=== PATIENT | male | born 2000 | race Caucasian/White ===

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

== ENCOUNTER 2021-03-05 09:37 | Emergency (ER) | payer BC ==
[2021-03-05 09:58] VITALS: BP 153/110; PULSE 115
[2021-03-05] MEDS ORDERED: Sodium Chloride 0.9% 1,000 ML IV STA (10:06)
[2021-03-05] MEDS ORDERED: Sodium Chloride 0.9% 10 ML Syringe FLUSH PRN (10:06)
[2021-03-05] MEDS ORDERED: Ondansetron 4 MG/2 ML SDV IVPUSH ONE (10:06)
--- NOTE | 2021-03-05 10:43 | EDM.PDOC ---
ED HPI GENERAL MEDICAL PROBLEM - General Chief Complaint: Gastrointestinal Problem Stated Complaint: POS DEHYDRATION Time Seen by Provider: 03/05/21 09:48 Source of Information: Reports: Patient History Limitations: Reports: No Limitations - History of Present Illness INITIAL COMMENTS - FREE TEXT/NARRATIVE: The patient presents with nausea, vomiting and chills. This started about 3 days ago. He did quit smoking marijuana 3 days ago. He says this has happened in the past when he quits smoking marijuana. He felt like he may have had a fever. He has no chest segura, shortness of breath or diarrhea. He has some mild abdominal cramping. He still has his appendix and gallbladder. Onset: Gradual Duration: Day(s): (3) Location: Reports: Abdomen Quality: Reports: Other (cramping) Severity: Mild Improves with: Reports: None Worsens with: Reports: None Associated Symptoms: Reports: Fever/Chills, Nausea/Vomiting. Denies: Chest Pain, Cough, Headaches, Shortness of Breath - Related Data Allergies Allergy/AdvReac Type Severity Reaction Status Date / Time azithromycin [From Zithromax] Allergy Hives Verified 07/09/19 16:56 Home Meds: Home Meds Ondansetron [Zofran ODT] 4 mg PO Q6H PRN #20 tab.dis 03/05/21 [Rx] Past Medical History - Past Health History Medical/Surgical History: Denies Medical/Surgical History Psychiatric History: Reports: Anxiety, Depression - Past Surgical History HEENT Surgical History: Reports: Myringotomy w Tube(s) Social & Family History - Family History Family Medical History: No Pertinent Family History - Tobacco Use Tobacco Use Status *Q: Never Tobacco User - Caffeine Use Caffeine Use: Reports: None - Recreational Drug Use Recreational Drug Use: Yes Drug Use in Last 12 Months: Yes Recreational Drug Type: Reports: Marijuana/Hashish Recreational Drug Use Frequency: Daily - Living Situation & Occupation Living situation: Reports: with Family Occupation: Student (12th grade) ED ROS GENERAL - Review of Systems Review Of Systems: See Below Constitutional: Reports: Fever, Chills HEENT: Reports: No Symptoms Respiratory: Reports: No Symptoms Cardiovascular: Reports: No Symptoms Endocrine: Reports: No Symptoms GI/Abdominal: Reports: Abdominal Pain, Nausea, Vomiting. Denies: Diarrhea : Reports: No Symptoms Musculoskeletal: Reports: No Symptoms ED EXAM, GI/ABD - Physical Exam Exam: See Below Exam Limited By: No Limitations General Appearance: Alert, No Apparent Distress Ears: Normal External Exam Nose: Normal Inspection Head: Atraumatic, Normocephalic Neck: Normal Inspection Respiratory/Chest: No Respiratory Distress, Lungs Clear, Normal Breath Sounds Cardiovascular: Regular Rate, Rhythm, No Edema, No Murmur GI/Abdominal Exam: Soft, No Organomegaly, No Mass, Tender (Mild generalized tenderness) Course - Vital Signs Last Recorded V/S: Last Vital Signs Temp 97.6 F 03/05/21 09:52 Pulse 115 H 03/05/21 09:52 Resp 20 03/05/21 09:52 BP 153/110 H 03/05/21 09:52 Pulse Ox 100 03/05/21 09:52 - Orders/Labs/Meds Orders: Active Orders 24 hr Category Date Time Status Peripheral IV Care [RC] . DIRECTED Care 03/05/21 10:06 Active Sodium Chloride 0.9% [Saline Flush] Med 03/05/21 10:06 Active 10 ml FLUSH ASDIRECTED PRN ED Antiemetic Medication Reflex [OM.PC] Stat Oth 03/05/21 10:06 Ordered Peripheral IV Insertion Adult [OM.PC] Stat Oth 03/05/21 10:06 Ordered Medication Orders Sodium Chloride (Sodium Chloride 0.9% 10 Ml Syringe) 10 ml FLUSH ASDIRECTED PRN PRN Reason: Keep Vein Open Last Admin: 03/05/21 10:20 Dose: 10 ml Documented by: RADU Labs: Laboratory Tests 03/05/21 03/05/21 03/05/21 Range/Units 10:15 10:15 11:15 WBC 13.17 H (4.23-9.07) K/mm3 RBC 5.87 (4.63-6.08) M/mm3 Hgb 17.2 D (13.7-17.5) gm/dl Hct 49.5 (40.1-51.0) % MCV 84.3 (79.0-92.2) fl MCH 29.3 (25.7-32.2) pg MCHC 34.7 (32.2-35.5) g/dl RDW Std Deviation 40.8 (35.1-43.9) fL Plt Count 306 (163-337) K/mm3 MPV 10.0 (9.4-12.3) fl Neut % (Auto) 77.0 H (34.0-67.9) % Lymph % (Auto) 15.3 L (21.8-53.1) % [place] % (Auto) 7.1 (5.3-12.2) % Eos % (Auto) 0.2 L (0.8-7.0) Baso % (Auto) 0.2 (0.1-1.2) % Neut # (Auto) 10.15 H (1.78-5.38) K/mm3 Lymph # (Auto) 2.02 (1.32-3.57) K/mm3 [place] # (Auto) 0.94 H (0.30-0.82) K/mm3 Eos # (Auto) 0.02 L (0.04-0.54) K/mm3 Baso # (Auto) 0.02 (0.01-0.08) K/mm3 Manual Slide Review Abnormal smear Sodium 140 (136-145) mEq/L Potassium 3.1 L (3.5-5.1) mEq/L Chloride 95 L (98-107) mEq/L Carbon Dioxide 27 (21-32) mEq/L Anion Gap 21.1 H (5-15) BUN 28 H (7-18) mg/dL Creatinine 1.2 (0.7-1.3) mg/dL Est Cr Clr Drug Dosing 105.45 mL/min Estimated GFR (MDRD) > 60 (>60) mL/min BUN/Creatinine Ratio 23.3 H (14-18) Glucose 111 H (70-99) mg/dL Calcium 10.7 H (8.5-10.1) mg/dL Total Bilirubin 1.1 H (0.2-1.0) mg/dL AST 11 L (15-37) U/L ALT 25 (16-63) U/L Alkaline Phosphatase 59 (46-116) U/L Total Protein 9.4 H (6.4-8.2) g/dl Albumin 5.7 H (3.4-5.0) g/dl Globulin 3.7 gm/dL Albumin/Globulin Ratio 1.5 (1-2) Lipase 51 L (73-393) U/L Urine Color (Yellow) Urine Appearance (Clear) Urine pH (5.0-8.0) Ur Specific [place] (1.005-1.030) Urine Protein (Negative) Urine Glucose (UA) (Negative) Urine Ketones (Negative) Urine Occult Blood (Negative) Urine Nitrite (Negative) Urine Bilirubin (Negative) Urine Urobilinogen (0.2-1.0) Ur Leukocyte Esterase (Negative) U Hyaline Cast (Auto) (0-5) /lpf Urine RBC (0-5) /hpf Urine WBC (0-5) /hpf Ur Squamous Epith Cells (0-5) /hpf Urine Bacteria (FEW) /hpf Urine Mucus (FEW) /hpf Urine Opiates Screen Negative (TZTPUH=404) Ur Buprenorphine Scrn Negative (CUTOFF=10) Ur Oxycodone Screen Negative (XUL8HR=244) Urine Methadone Screen Negative (MKP7KG=439) Ur Propoxyphene Screen Negative (AJNSCP=491) Ur Barbiturates Screen Negative (CIDKFO=873) Ur Tricyclics Screen Negative (WBQRMO=122) Ur Phencyclidine Scrn Negative (CUTOFF=25) Ur Amphetamine Screen Negative (RXFREV=774) U Methamphetamines Scrn Negative (NOGGZL=710) U Benzodiazepines Scrn Negative (JBUVMZ=043) U Cocaine Metab Screen Negative (SEDEXG=949) U Marijuana (THC) Screen Presumptive positive H (CUTOFF=50) 03/05/21 Range/Units 11:20 WBC (4.23-9.07) K/mm3 RBC (4.63-6.08) M/mm3 Hgb (13.7-17.5) gm/dl Hct (40.1-51.0) % MCV (79.0-92.2) fl MCH (25.7-32.2) pg MCHC (32.2-35.5) g/dl RDW Std Deviation (35.1-43.9) fL Plt Count (163-337) K/mm3 MPV (9.4-12.3) fl Neut % (Auto) (34.0-67.9) % Lymph % (Auto) (21.8-53.1) % [place] % (Auto) (5.3-12.2) % Eos % (Auto) (0.8-7.0) Baso % (Auto) (0.1-1.2) % Neut # (Auto) (1.78-5.38) K/mm3 Lymph # (Auto) (1.32-3.57) K/mm3 [place] # (Auto) (0.30-0.82) K/mm3 Eos # (Auto) (0.04-0.54) K/mm3 Baso # (Auto) (0.01-0.08) K/mm3 Manual Slide Review Sodium (136-145) mEq/L Potassium (3.5-5.1) mEq/L Chloride (98-107) mEq/L Carbon Dioxide (21-32) mEq/L Anion Gap (5-15) BUN (7-18) mg/dL Creatinine (0.7-1.3) mg/dL Est Cr Clr Drug Dosing mL/min Estimated GFR (MDRD) (>60) mL/min BUN/Creatinine Ratio (14-18) Glucose (70-99) mg/dL Calcium (8.5-10.1) mg/dL Total Bilirubin (0.2-1.0) mg/dL AST (15-37) U/L ALT (16-63) U/L Alkaline Phosphatase (46-116) U/L Total Protein (6.4-8.2) g/dl Albumin (3.4-5.0) g/dl Globulin gm/dL Albumin/Globulin Ratio (1-2) Lipase (73-393) U/L Urine Color Dark yellow (Yellow) Urine Appearance Clear (Clear) Urine pH 7.0 (5.0-8.0) Ur Specific [place] 1.025 (1.005-1.030) Urine Protein 3+ H (Negative) Urine Glucose (UA) Negative (Negative) Urine Ketones 4+ H (Negative) Urine Occult Blood Negative (Negative) Urine Nitrite Negative (Negative) Urine Bilirubin 1+ H (Negative) Urine Urobilinogen 1.0 (0.2-1.0) Ur Leukocyte Esterase Negative (Negative) U Hyaline Cast (Auto) 0-5 (0-5) /lpf Urine RBC 0-5 (0-5) /hpf Urine WBC 0-5 (0-5) /hpf Ur Squamous Epith Cells 0-5 (0-5) /hpf Urine Bacteria Moderate H (FEW) /hpf Urine Mucus Moderate H (FEW) /hpf Urine Opiates Screen (QUEOVP=473) Ur Buprenorphine Scrn (CUTOFF=10) Ur Oxycodone Screen (YJO6WL=055) Urine Methadone Screen (LTD7UR=149) Ur Propoxyphene Screen (HMNVFX=921) Ur Barbiturates Screen (QINHGA=336) Ur Tricyclics Screen (NOCSWA=375) Ur Phencyclidine Scrn (CUTOFF=25) Ur Amphetamine Screen (IHMPCK=982) U Methamphetamines Scrn (AYPDSP=146) U Benzodiazepines Scrn (RLAOVW=161) U Cocaine Metab Screen (LWOVNH=202) U Marijuana (THC) Screen (CUTOFF=50) Meds: Medications Generic Name Dose Route Start Last Admin Trade Name Freq PRN Reason Stop Dose Admin Sodium Chloride 10 ml 03/05/21 10:06 03/05/21 10:20 Sodium Chloride 0.9% 10 Ml Syringe FLUSH 10 ml ASDIRECTED PRN Administration Keep Vein Open Discontinued Medications Generic Name Dose Route Start Last Admin Trade Name Freq PRN Reason Stop Dose Admin Sodium Chloride 1,000 mls @ 1,000 mls/hr 03/05/21 10:06 03/05/21 10:22 Normal Saline IV 03/05/21 11:05 1,000 mls/hr .BOLUS STA Administration Ondansetron HCl 4 mg 03/05/21 10:06 03/05/21 10:20 Ondansetron 4 Mg/2 Ml Sdv IVPUSH 03/05/21 10:07 4 mg ONETIME ONE Administration - Re-Assessments/Exams Free Text/Narrative Re-Assessment/Exam: 03/05/21 10:44 I ordered an IV NS 1L bolus, zofran 4mg IV, labs and UA. 03/05/21 12:12 His WBC was elevated at 13.17. His K was a little low at 3.1. His anion gap is elevated at 21.1. His lipase is negative. His UA shows no UTI. His urine drug screen was positive for marijuana. 03/05/21 12:15 He feels better. I will discharge him home. Departure - Departure Time of Disposition: 12:20 Disposition: Home, Self-Care 01 Condition: Good Clinical Impression: Nausea & vomiting Qualifiers: Vomiting type: unspecified Vomiting Intractability: non-intractable Qualified Code(s): R11.2 - Nausea with vomiting, unspecified - Discharge Information *PRESCRIPTION DRUG MONITORING PROGRAM REVIEWED*: Not Applicable *COPY OF PRESCRIPTION DRUG MONITORING REPORT IN PATIENT ALBERT: Not Applicable Prescriptions: Ondansetron [Zofran ODT] 4 mg PO Q6H PRN #20 tab.dis PRN Reason: Nausea\vomiting Referrals: PCP,None [Primary Care Provider] - Forms: ED Department Discharge Additional Instructions: Drink plenty of fluids. Take the zofran every 6 hours as needed for nausea and vomiting. Please return if you are worse. Sepsis Event Note (ED) - Evaluation Sepsis Screening Result: No Definite Risk - Focused Exam Vital Signs: Vital Signs Temp Pulse Resp BP Pulse Ox 03/05/21 09:52 97.6 F 115 H 20 153/110 H 100 - My Orders Last 24 Hours: My Active Orders 03/05/21 10:06 Peripheral IV Care [RC] . DIRECTED Sodium Chloride 0.9% [Saline Flush] 10 ml FLUSH ASDIRECTED PRN ED Antiemetic Medication Reflex [OM.PC] Stat Peripheral IV Insertion Adult [OM.PC] Stat - Assessment/Plan Last 24 Hours: My Active Orders 03/05/21 10:06 Peripheral IV Care [RC] . DIRECTED Sodium Chloride 0.9% [Saline Flush] 10 ml FLUSH ASDIRECTED PRN ED Antiemetic Medication Reflex [OM.PC] Stat Peripheral IV Insertion Adult [OM.PC] Stat
== END 2021-03-05 12:26 | disposition home or self-care (01) ==
LOC: JD.ED 09:37
DX: R11.2 Nausea with vomiting, unspecified (principal); Z88.1 Allergy status to other antibiotic agents; F12.21 Cannabis dependence, in remission
CPT/HCPCS: 36415; 80053; 80306; 81001; 83690; 85025; 96374; 99284; J2405; J7030; 99283

== ENCOUNTER 2021-03-07 10:47 | Emergency (ER) | payer BC ==
[2021-03-07 11:20] VITALS: BP 164/100; PULSE 84
[2021-03-07] MEDS ORDERED: Sodium Chloride 0.9% 10 ML Syringe FLUSH PRN (11:32)
[2021-03-07] MEDS ORDERED: Metoclopramide 10 MG/2 ML SDV IVPUSH ONE (11:33)
[2021-03-07] MEDS ORDERED: Sodium Chloride 0.9% 1,000 ML IV STA ×2 (11:33→12:32)
--- NOTE | 2021-03-07 12:03 | CR ---
Abdomen: Supine and upright views of the abdomen were obtained. Comparison: No prior abdominal imaging is available. Bowel gas pattern is normal. No free air is seen. Visualized lung bases are clear. No acute osseous finding is seen. No abnormal calcifications are noted. Impression: 1. Nothing acute is seen on 2 view abdominal x-ray. Diagnostic code #1
[2021-03-07] MEDS ORDERED: Potassium Chloride 20 MEQ Tab.ER PO ONE (12:31)
[2021-03-07] MEDS: Potassium Chloride 10 MEQ in Premix Bag 1 BAG IV SCH ×3 (13:01→15:29)
--- NOTE | 2021-03-07 13:28 | EDM.PDOC ---
ED HPI GENERAL MEDICAL PROBLEM - General Chief Complaint: Gastrointestinal Problem Stated Complaint: nauseated Time Seen by Provider: 03/07/21 11:21 Source of Information: Reports: Patient, RN Notes Reviewed History Limitations: Reports: No Limitations - History of Present Illness INITIAL COMMENTS - FREE TEXT/NARRATIVE: Patient is a 20-year-old male presenting to the emergency department with complaints of ongoing nausea with occasional vomiting. He was seen in this emergency department 2 days ago for similar complaints. Work-up done at that time was found to be normal. He states that he is able to keep fluids down but cannot eat. He has not had a bowel movement since Sunday and states at that time it was hard for him to go. He had to "take a hit a week "to have a bowel movement. Prior to this, he had stopped smoking marijuana which he feels is likely related to his symptoms. Denies any significant abdominal pain. He said no fever or chills. He has been using the Zofran that he was prescribed but does not think that it is working. - Related Data Allergies Allergy/AdvReac Type Severity Reaction Status Date / Time azithromycin [From Zithromax] Allergy Hives Verified 03/07/21 11:20 Home Meds: Home Meds Ondansetron [Zofran ODT] 4 mg PO Q6H PRN #20 tab.dis 03/05/21 [Rx] Past Medical History - Past Health History Medical/Surgical History: Denies Medical/Surgical History Psychiatric History: Reports: Anxiety, Depression - Past Surgical History HEENT Surgical History: Reports: Myringotomy w Tube(s) Social & Family History - Family History Family Medical History: No Pertinent Family History - Tobacco Use Tobacco Use Status *Q: Never Tobacco User - Caffeine Use Caffeine Use: Reports: None - Recreational Drug Use Recreational Drug Use: Yes Drug Use in Last 12 Months: Yes Recreational Drug Type: Reports: Marijuana/Hashish Recreational Drug Use Frequency: Daily Recreational Drug Last Use: 01/01/21 - Living Situation & Occupation Living situation: Reports: with Family Occupation: Student (12th grade) ED ROS GENERAL - Review of Systems Review Of Systems: See Below Constitutional: Reports: Decreased Appetite. Denies: Fever, Chills HEENT: Reports: No Symptoms Respiratory: Reports: No Symptoms Cardiovascular: Reports: No Symptoms Endocrine: Reports: No Symptoms GI/Abdominal: Reports: Constipation, Nausea, Vomiting. Denies: Abdominal Pain, Diarrhea : Reports: No Symptoms Musculoskeletal: Reports: No Symptoms Skin: Reports: No Symptoms Neurological: Reports: No Symptoms Psychiatric: Reports: No Symptoms Hematologic/Lymphatic: Reports: No Symptoms Immunologic: Reports: No Symptoms ED EXAM, GI/ABD - Physical Exam Exam: See Below General Appearance: Alert, WD/WN, No Apparent Distress Respiratory/Chest: No Respiratory Distress, Lungs Clear, Normal Breath Sounds, No Accessory Muscle Use, Chest Non-Tender Cardiovascular: Normal Peripheral Pulses, Regular Rate, Rhythm, No Edema, No Gallop, No JVD, No Murmur, No Rub GI/Abdominal Exam: Normal Bowel Sounds, Soft, No Organomegaly, No Distention, No Abnormal Bruit, No Mass, Pelvis Stable, Tender (Mild generalized tenderness throughout) Neurological: Alert, Oriented, CN II-XII Intact, Normal Cognition, Normal Gait, Normal Reflexes, No Motor/Sensory Deficits Psychiatric: Normal Affect, Normal Mood Course - Vital Signs Last Recorded V/S: Last Vital Signs Temp 97.1 F 03/07/21 11:16 Pulse 84 03/07/21 11:16 Resp 18 03/07/21 11:16 BP 164/100 H 03/07/21 11:16 Pulse Ox 98 03/07/21 11:16 - Orders/Labs/Meds Labs: Laboratory Tests 03/07/21 03/07/21 03/07/21 Range/Units 11:55 11:55 12:01 WBC 9.25 H (4.23-9.07) K/mm3 RBC 5.58 (4.63-6.08) M/mm3 Hgb 16.3 (13.7-17.5) gm/dl Hct 47.2 (40.1-51.0) % MCV 84.6 (79.0-92.2) fl MCH 29.2 (25.7-32.2) pg MCHC 34.5 (32.2-35.5) g/dl RDW Std Deviation 39.0 (35.1-43.9) fL Plt Count 262 (163-337) K/mm3 MPV 9.6 (9.4-12.3) fl Neut % (Auto) 70.6 H (34.0-67.9) % Lymph % (Auto) 20.2 L (21.8-53.1) % [place] % (Auto) 8.3 (5.3-12.2) % Eos % (Auto) 0.5 L (0.8-7.0) Baso % (Auto) 0.3 (0.1-1.2) % Neut # (Auto) 6.52 H (1.78-5.38) K/mm3 Lymph # (Auto) 1.87 (1.32-3.57) K/mm3 [place] # (Auto) 0.77 (0.30-0.82) K/mm3 Eos # (Auto) 0.05 (0.04-0.54) K/mm3 Baso # (Auto) 0.03 (0.01-0.08) K/mm3 Sodium 139 (136-145) mEq/L Potassium 2.8 L (3.5-5.1) mEq/L Chloride 96 L (98-107) mEq/L Carbon Dioxide 32 (21-32) mEq/L Anion Gap 13.8 (5-15) BUN 14 (7-18) mg/dL Creatinine 1.0 (0.7-1.3) mg/dL Est Cr Clr Drug Dosing 126.55 mL/min Estimated GFR (MDRD) > 60 (>60) mL/min BUN/Creatinine Ratio 14.0 (14-18) Glucose 109 H (70-99) mg/dL Calcium 10.2 H (8.5-10.1) mg/dL Magnesium 2.4 (1.8-2.4) mg/dL Total Bilirubin 1.0 (0.2-1.0) mg/dL AST 11 L (15-37) U/L ALT 23 (16-63) U/L Alkaline Phosphatase 50 (46-116) U/L C-Reactive Protein <0.2 (<1.0) mg/dL Total Protein 8.4 H (6.4-8.2) g/dl Albumin 5.1 H (3.4-5.0) g/dl Globulin 3.3 gm/dL Albumin/Globulin Ratio 1.6 (1-2) Lipase 51 L (73-393) U/L Meds: Medications Discontinued Medications Generic Name Dose Route Start Last Admin Trade Name Freq PRN Reason Stop Dose Admin Sodium Chloride 1,000 mls @ 999 mls/hr 03/07/21 11:33 03/07/21 12:14 Normal Saline IV 03/07/21 12:33 999 mls/hr NOW STA Administration Potassium Chloride 10 meq/ 100 mls @ 100 mls/hr 03/07/21 12:45 03/07/21 15:29 Premix IV 03/07/21 15:44 100 mls/hr Q1H CHRYSTAL Administration Sodium Chloride 1,000 mls @ 150 mls/hr 03/07/21 12:32 03/07/21 13:04 Normal Saline IV 03/07/21 19:11 150 mls/hr NOW STA Administration Potassium Chloride Confirm 03/07/21 14:15 03/07/21 18:29 Kcl In Water 10 Meq/100 Ml Administered 03/07/21 14:16 Not Given Dose 100 mls @ as directed .ROUTE .STK-MED ONE Metoclopramide HCl 7.5 mg 03/07/21 11:33 03/07/21 12:14 Metoclopramide 10 Mg/2 Ml Sdv IVPUSH 03/07/21 11:34 7.5 mg ONETIME ONE Administration Potassium Chloride 20 meq 03/07/21 12:31 03/07/21 12:59 Potassium Chloride 20 Meq Tab.Er PO 03/07/21 12:32 20 meq ONETIME ONE Administration Sodium Chloride 10 ml 03/07/21 11:32 03/07/21 12:16 Sodium Chloride 0.9% 10 Ml Syringe FLUSH 10 ml ASDIRECTED PRN Administration Keep Vein Open - Re-Assessments/Exams Free Text/Narrative Re-Assessment/Exam: As above, patient is a 20-year-old male presenting to the emergency department with complaints of ongoing nausea and vomiting. Exam is unremarkable. I have ordered blood work and a abdomen flat and upright x-ray. We will give him a 1 L bolus of normal saline as well as Reglan 7.5 mg IV. 03/07/21 14:04 Hematology significant for potassium low at 2.8. Otherwise unremarkable. Patient is feeling better after the IV fluids and Reglan. I have ordered 20 mEq of oral potassium as well as 3 potassium riders. Abdomen x-ray does show normal bowel gas pattern, however he does have minimally increased stool as well. Recommendation with regards to this will be MiraLAX. 03/08/21 21:45 Patient has finished his potassium and is doing well. He will be discharged home. Discharge instructions as documented. Departure - Departure Time of Disposition: 21:45 Disposition: Home, Self-Care 01 Clinical Impression: Hypokalemia Nausea & vomiting Qualifiers: Vomiting type: unspecified Vomiting Intractability: non-intractable Qualified Code(s): R11.2 - Nausea with vomiting, unspecified - Discharge Information *PRESCRIPTION DRUG MONITORING PROGRAM REVIEWED*: No *COPY OF PRESCRIPTION DRUG MONITORING REPORT IN PATIENT ALBERT: No Instructions: Hypokalemia, Nausea and Vomiting, Adult Referrals: PCP,None [Primary Care Provider] - Forms: ED Department Discharge Additional Instructions: You were seen in the emergency department today for continued nausea and vomiting. Work-up included blood work and an x-ray of your abdomen. Results your blood work did show that your potassium was low. This was replaced in the emergency department today. There was some mild increase stool in your colon on x-ray as well. Recommend that you take MiraLAX 17 g daily to regulate your bowels. Continue to use the Zofran as previously prescribed. Maintain a clear liquid diet for the next 24 hours and then gradually advance this as your symptoms improve. Return to ER for any new or worsening symptoms. Sepsis Event Note (ED) - Evaluation Sepsis Screening Result: No Definite Risk
[2021-03-07] MEDS ORDERED: Potassium Chloride 100 ML ONE (14:15)
== END 2021-03-07 16:50 | disposition home or self-care (01) ==
LOC: JD.ED 10:47
DX: R11.2 Nausea with vomiting, unspecified (principal); E87.6 Hypokalemia; Z88.1 Allergy status to other antibiotic agents
CPT/HCPCS: 36415; 74019; 80053; 83690; 83735; 85025; 86140; 96365; 96366; 96375; 99284; A9270; J2765; J3480; J7030

== ENCOUNTER 2021-07-16 18:53 | Emergency (ER) | payer BC ==
[2021-07-16 19:39] VITALS: BP 127/82; PULSE 114
[2021-07-16] MEDS ORDERED: Sodium Chloride 0.9% 1,000 ML IV ONE (20:03)
[2021-07-16] MEDS ORDERED: Sodium Chloride 0.9% 10 ML Syringe FLUSH PRN (20:03)
--- NOTE | 2021-07-16 21:12 | EDM.PDOC ---
ED HPI GENERAL MEDICAL PROBLEM - General Chief Complaint: Gastrointestinal Problem Stated Complaint: VOMITTING/NAUSEA Time Seen by Provider: 07/16/21 19:32 Source of Information: Reports: Patient History Limitations: Reports: No Limitations - History of Present Illness INITIAL COMMENTS - FREE TEXT/NARRATIVE: 20-year-old male presents the emergency department with complaints of vomiting. States he has been worked up many times in the past for the exact same with thing without any reasoning for the vomiting being found. Patient states he woke at 830 this morning and began vomiting. States he has vomited numerous times today. Denies any fever, chills, diarrhea, constipation, abdominal pain, headache, cough or shortness of breath. He denies any urinary symptoms. Sameera r, he does admit to smoking marijuana every day. States he smoked last night before bed. States he has had this issue for approximately the past year. Denies that he has seen any GI specialist and has only sought treatment in the emergency department. States that he has lost approximately 20 pounds since his last visit. He tells me that he believes the cause of his vomiting is hypokalemia. I did instruct him at that time that hypokalemia is the result of vomiting not the cause. Did discuss at length with him cyclic vomiting due to cannabis use. He states that he has been smoking cannabis since the age of the 12 and so that cannot possibly be the case with him. He states he has not tried to quit smoking marijuana to see if this is the cause however. He is requesting IV fluids as he states he is feeling dehydrated and would like his potassium level checked. Treatments RAND MAKER: Reports: Other Medication(s) Other Treatments RAND MAKER: Pt had an unknown nausea med he was given in [place] - Related Data Allergies Allergy/AdvReac Type Severity Reaction Status Date / Time azithromycin [From Zithromax] Allergy Hives Verified 03/07/21 11:20 Home Meds: Home Meds Ondansetron [Zofran ODT] 4 mg PO Q6H PRN #20 tab.dis 03/05/21 [Rx] Past Medical History - Past Health History Medical/Surgical History: Denies Medical/Surgical History Gastrointestinal History: Reports: Other (See Below) Other Gastrointestinal History: Chronic Cyclical Nausea/Vomiting Psychiatric History: Reports: Anxiety, Depression, Suicidal Ideation - Past Surgical History HEENT Surgical History: Reports: Myringotomy w Tube(s) GI Surgical History: Reports: None Social & Family History - Family History Family Medical History: No Pertinent Family History - Tobacco Use Tobacco Use Status *Q: Never Tobacco User Second Hand Smoke Exposure: No - Caffeine Use Caffeine Use: Reports: None - Recreational Drug Use Recreational Drug Use: Yes Drug Use in Last 12 Months: Yes Recreational Drug Type: Reports: Marijuana/Hashish Recreational Drug Use Frequency: Daily - Living Situation & Occupation Living situation: Reports: with Family Occupation: Student (12th grade) ED ROS GENERAL - Review of Systems Review Of Systems: Comprehensive ROS is negative, except as noted in HPI. ED EXAM, GI/ABD - Physical Exam Exam: See Below Exam Limited By: No Limitations General Appearance: Alert, WD/WN, No Apparent Distress Ears: Normal External Exam, Hearing Grossly Normal Nose: Normal Inspection Throat/Mouth: Normal Inspection, Normal Lips, Normal Voice, No Airway Compromise Head: Atraumatic, Normocephalic Neck: Normal Inspection, Supple Respiratory/Chest: No Respiratory Distress, Lungs Clear, Normal Breath Sounds, No Accessory Muscle Use, Chest Non-Tender Cardiovascular: Normal Peripheral Pulses, Regular Rate, Rhythm, No Edema, No Murmur GI/Abdominal Exam: Normal Bowel Sounds, Soft, Non-Tender, No Distention (Male) Exam: Deferred Rectal (Males) Exam: Deferred Back Exam: Normal Inspection, Full Range of Motion Extremities: Normal Inspection, Normal Range of Motion, Non-Tender, No Pedal Edema, Normal Capillary Refill Neurological: Alert, Oriented, Normal Cognition Psychiatric: Normal Affect, Normal Mood Skin Exam: Warm, Dry, Intact, Normal Color, No Rash Lymphatic: No Adenopathy Course - Vital Signs Text/Narrative:: As stated above patient presents with vomiting that woke him at approximately 830 this morning. Patient is awake alert and oriented. Laying in his bed on his cell smiling and talking. He is not in any form of distress. Physical exam is completely unremarkable. States he last vomited approximately 2 hours ago. He does not currently have any nausea. Will obtain lab studies to include a CBC, CMP, magnesium and C-reactive protein. We will give the patient 1 L of normal saline per his request as he may very likely be dehydrated due to vomiting. I do not feel we need to do any radiologic studies as the patient's hemodynamically stable other than being tachycardic., afebrile and physical exam is completely unremarkable. Last Recorded V/S: Last Vital Signs Temp 98.9 F 07/16/21 19:32 Pulse 114 H 07/16/21 19:32 Resp 16 07/16/21 19:32 BP 127/82 07/16/21 19:32 Pulse Ox 99 07/16/21 19:32 - Orders/Labs/Meds Orders: Active Orders 24 hr Category Date Time Status Sodium Chloride 0.9% [Saline Flush] Med 07/16/21 20:03 Active 10 ml FLUSH ASDIRECTED PRN Saline Lock Insert [OM.PC] Stat Oth 07/16/21 20:03 Ordered Medication Orders Sodium Chloride (Sodium Chloride 0.9% 10 Ml Syringe) 10 ml FLUSH ASDIRECTED PRN PRN Reason: Keep Vein Open Last Admin: 07/16/21 20:11 Dose: 10 ml Documented by: FADIA Labs: Laboratory Tests 07/16/21 07/16/21 07/16/21 Range/Units 20:10 20:10 20:10 WBC 14.61 H (4.23-9.07) K/mm3 RBC 5.28 (4.63-6.08) M/mm3 Hgb 15.4 (13.7-17.5) gm/dl Hct 46.2 (40.1-51.0) % MCV 87.5 (79.0-92.2) fl MCH 29.2 (25.7-32.2) pg MCHC 33.3 (32.2-35.5) g/dl RDW Std Deviation 42.9 (35.1-43.9) fL Plt Count 242 (163-337) K/mm3 MPV 9.7 (9.4-12.3) fl Neut % (Auto) 77.1 H (34.0-67.9) % Lymph % (Auto) 20.8 L (21.8-53.1) % [place] % (Auto) 1.7 L (5.3-12.2) % Eos % (Auto) 0.1 L (0.8-7.0) Baso % (Auto) 0.1 (0.1-1.2) % Neut # (Auto) 11.26 H (1.78-5.38) K/mm3 Lymph # (Auto) 3.04 (1.32-3.57) K/mm3 [place] # (Auto) 0.25 L (0.30-0.82) K/mm3 Eos # (Auto) 0.01 L (0.04-0.54) K/mm3 Baso # (Auto) 0.02 (0.01-0.08) K/mm3 Sodium 140 (136-145) mEq/L Potassium 4.3 D (3.5-5.1) mEq/L Chloride 102 (98-107) mEq/L Carbon Dioxide 26 (21-32) mEq/L Anion Gap 16.3 H (5-15) BUN 17 (7-18) mg/dL Creatinine 0.8 (0.7-1.3) mg/dL Est Cr Clr Drug Dosing 153.35 mL/min Estimated GFR (MDRD) > 60 (>60) mL/min BUN/Creatinine Ratio 21.3 H (14-18) Glucose 112 H (70-99) mg/dL Calcium 10.1 (8.5-10.1) mg/dL Magnesium 2.1 (1.8-2.4) mg/dL Total Bilirubin 0.4 (0.2-1.0) mg/dL AST 8 L (15-37) U/L ALT 23 (16-63) U/L Alkaline Phosphatase 50 (46-116) U/L C-Reactive Protein <0.2 (<1.0) mg/dL Total Protein 8.3 H (6.4-8.2) g/dl Albumin 5.2 H (3.4-5.0) g/dl Globulin 3.1 gm/dL Albumin/Globulin Ratio 1.7 (1-2) Meds: Medications Generic Name Dose Route Start Last Admin Trade Name Freq PRN Reason Stop Dose Admin Sodium Chloride 10 ml 07/16/21 20:03 07/16/21 20:11 Sodium Chloride 0.9% 10 Ml Syringe FLUSH 10 ml ASDIRECTED PRN Administration Keep Vein Open Discontinued Medications Generic Name Dose Route Start Last Admin Trade Name Freq PRN Reason Stop Dose Admin Diphenhydramine HCl 50 mg 07/16/21 21:21 07/16/21 21:27 Diphenhydramine 50 Mg/Ml Sdv IVPUSH 07/16/21 21:22 50 mg ONETIME ONE Administration Sodium Chloride 1,000 mls @ 999 mls/hr 07/16/21 20:03 07/16/21 20:11 Normal Saline IV 07/16/21 21:03 999 mls/hr ONETIME ONE Administration Metoclopramide HCl 10 mg 07/16/21 21:21 07/16/21 21:25 Metoclopramide 10 Mg/2 Ml Sdv IVPUSH 07/16/21 21:22 10 mg ONETIME ONE Administration - Re-Assessments/Exams Free Text/Narrative Re-Assessment/Exam: 07/16/21 21:16 Hematology reveals a WBC of 14.61, hemoglobin 15.4, hematocrit 46.2, platelet count 242 Chemistry reveals a sodium of 140, potassium 4.3, chloride 102, carbon dioxide 26, anion gap 16.3, BUN 17, creatinine 0.8, GFR greater than 60, glucose 112, magnesium 2.1, C-reactive protein less than 0.2 Patient's white count is elevated however I do feel this is likely due to stress response from vomiting. Patient was only mildly dehydrated and C-reactive protein is negative. Again, physical exam was completely unremarkable and he is denying any pain or discomfort anywhere. He will be discharged home. With strict return precautions. 07/16/21 21:28 About to discharge the patient to home when he began vomiting. Will medicate the patient with Reglan and Benadryl to prevent dystonic reaction. Departure - Departure Time of Disposition: 22:27 Disposition: Home, Self-Care 01 Condition: Good Clinical Impression: Cannabis abuse, daily use Nausea & vomiting Qualifiers: Vomiting type: unspecified Vomiting Intractability: intractable Qualified Code(s): R11.2 - Nausea with vomiting, unspecified - Discharge Information Instructions: Cannabinoid Hyperemesis Syndrome Referrals: PCP,None [Primary Care Provider] - Forms: ED Department Discharge Additional Instructions: You were seen in the emergency department this evening with complaints of nausea and vomiting. Lab studies were completed and were essentially unremarkable. White count was elevated however I think this is due to a stress response as your inflammatory markers were not elevated and you are not having any abdominal pain associated with your vomiting. You did receive 1 L of IV fluids while in the emergency department and you stated after receiving that that you are hungry. As discussed suspect that your nausea and vomiting is due to cannabis use. Recommend you stop using cannabis for an extended period of time to see if nausea and vomiting episodes resolve. Also recommend that you have further evaluation by a automation clerk. Should your condition worsen or change, do not hesitate returning to the emergency department. Sepsis Event Note (ED) - Evaluation Sepsis Screening Result: No Definite Risk - Focused Exam Vital Signs: Vital Signs Temp Pulse Resp BP Pulse Ox 07/16/21 19:32 98.9 F 114 H 16 127/82 99 - My Orders Last 24 Hours: My Active Orders 07/16/21 20:03 Sodium Chloride 0.9% [Saline Flush] 10 ml FLUSH ASDIRECTED PRN Saline Lock Insert [OM.PC] Stat - Assessment/Plan Last 24 Hours: My Active Orders 07/16/21 20:03 Sodium Chloride 0.9% [Saline Flush] 10 ml FLUSH ASDIRECTED PRN Saline Lock Insert [OM.PC] Stat
[2021-07-16] MEDS ORDERED: Metoclopramide 10 MG/2 ML SDV IVPUSH ONE (21:21)
[2021-07-16] MEDS ORDERED: diphenhydrAMINE 50 MG/ML SDV IVPUSH ONE (21:21)
== END 2021-07-16 22:32 | disposition home or self-care (01) ==
LOC: JD.ED 18:53
DX: R11.2 Nausea with vomiting, unspecified (principal); F12.10 Cannabis abuse, uncomplicated; Z88.1 Allergy status to other antibiotic agents
CPT/HCPCS: 36415; 80053; 83735; 85025; 86140; 96374; 96375; 99284; J1200; J2765; J7030

== ENCOUNTER 2022-10-08 14:27 | Emergency (ER) | payer BC ==
[2022-10-08 14:51] VITALS: BP 140/95; PULSE 77
[2022-10-08] MEDS ORDERED: Sodium Chloride 0.9% 1,000 ML IV ONE (15:59)
[2022-10-08] MEDS ORDERED: Ondansetron 4 MG/2 ML SDV IVPUSH ONE ×2 (15:59→17:34)
== END 2022-10-08 19:19 | disposition home or self-care (01) ==
LOC: JD.ED 14:27
DX: R11.2 Nausea with vomiting, unspecified (principal); Z88.1 Allergy status to other antibiotic agents
CPT/HCPCS: 36415; 80053; 83735; 85025; 96361; 96374; 96376; 99284; J2405; J7030; 99283

== ENCOUNTER 2024-08-17 12:03 | Emergency (ER) | payer BC ==
[2024-08-17] MEDS: Sodium Chloride 0.9% 1,000 ML IV ONE ×2 (13:57→14:59)
[2024-08-17] MEDS: Metoclopramide 10 MG/2 ML SDV IVPUSH ONE (13:57)
[2024-08-17 14:10] LABS: BASOPHILS PERCENT AUTO 0.2 % (0.0-1.0); EOSINOPHILS PERCENT AUTO 0.1 % (0.0-6.0); HEMATOCRIT 49.1 % (42.0-52.0); IMMATURE GRAN ABSOLUTE AUTO 0.09 K/mm3 (0.00-0.05); IMMATURE GRAN PERCENT AUTO 0.5 % (0.0-0.4); LYMPHOCYTES ABSOLUTE AUTO 1.6 K/mm3 (1.0-4.8); LYMPHOCYTES PERCENT AUTO 8.6 % (24.0-44.0); MEAN CORPUSCULAR HEMOGLOBIN 29.5 pg (28.0-32.0); MEAN CORPUSCULAR HGB CONC 34.6 g/dl (32.0-36.0); MEAN CORPUSCULAR VOLUME 85.2 fl (83.0-99.0); MEAN PLATELET VOLUME 9.7 fl (9.4-12.4); MONOCYTES ABSOLUTE AUTO 0.3 K/mm3 (0.0-0.8); MONOCYTES PERCENT AUTO 1.8 % (0.0-8.0); NEUTROPHILS ABSOLUTE AUTO 16.4 K/mm3 (1.8-7.7); NEUTROPHILS PERCENT AUTO 88.8 % (41.0-71.0); PLATELET COUNT,PLT 274 K/mm3 (150-400); RED BLOOD CELL COUNT 5.76 M/mm3 (4.52-5.90); WHITE BLOOD CELL COUNT,WBC 18.41 K/mm3 (3.9-11.3)
[2024-08-17 14:44] LABS: A/G RATIO 1.5 (1-2); ALANINE AMINOTRANSFERASE,ALT 27 U/L (16-63); ALBUMIN 5.4 g/dl (3.4-5.0); ALKALINE PHOSPHATASE 57 U/L (46-116); ANION GAP 20.9 (5-15); ASPARTATE AMNIOTRANSFERASE,AST 15 U/L (15-37); BILIRUBIN TOTAL 0.6 mg/dL (0.2-1.0); BLOOD UREA NITROGEN,BUN 15 mg/dL (7-18); BUN/CREATININE RATIO 13.6 (14-18); C-REACTIVE PROTEIN <0.05 mg/dL (<0.30); CALCIUM 10.4 mg/dL (8.5-10.1); CARBON DIOXIDE,CO2 24 mEq/L (21-32); CHLORIDE,CL 100 mEq/L (98-107); CREATININE 1.1 mg/dL (0.7-1.3); EST CRCL DRUG DOSING (CG) 112.19 mL/min; ESTIMATED GFR 97 mL/min (>60); GLUCOSE RANDOM 127 mg/dL (70-99); LIPASE 14 U/L (16-77); MAGNESIUM 1.8 mg/dL (1.8-2.4); POTASSIUM,K 3.9 mEq/L (3.5-5.1); SODIUM,NA 141 mEq/L (136-145)
[2024-08-17 16:02] VITALS: BP 156/94; PULSE 90
== END 2024-08-17 16:02 | disposition home or self-care (01) ==
LOC: JD.ED 12:03
DX: R11.2 Nausea with vomiting, unspecified (principal); F17.210 Nicotine dependence, cigarettes, uncomplicated; Z88.1 Allergy status to other antibiotic agents; Z86.16 Personal history of COVID-19
CPT/HCPCS: 36415; 80053; 80307; 83690; 83735; 85025; 86140; 96361; 96374; 99284; J2765; J7030; 99283